=== PATIENT | female | born 1985 | race African-American/Black ===

== ENCOUNTER 2016-10-26 15:17 | Emergency (ER) | payer OTHER ==
[~2016-10-26] VITALS: Ht 160 cm; Wt 61.2 kg
[~2016-10-26 15:17] MED LIST: AMOXICILLIN 50500 M1 PO; AZITHROMYCIN 2250 MG PO; BACTRIM DS TAB1 EACH PO; CIPROFLOXACIN500 M1 PO; DIFLUCAN; LOPERAMIDE2 MG PO; MICONAZOLE3DAY1 EACH VG; NOHOMEMEDICATIONS; NORCO 5-325 TA1 EACH PO; PHENERGAN 25 MG25 M1 PO; PYRIDIUM200 M1 PO; PYRIDIUM200 MG PO; SUPRAX400 M1 PO; TRAMADOL 50 MG50 MG PO; TYLENOL W/CODEI1 TA2 PO; VICODIN 5-5001 EACH PO
[2016-10-26 15:28] LABS: URINE BILIRUBIN NEGATIVE (Negative); URINE BLOOD 3+ (Negative); URINE COLOR YELLOW; URINE GLUCOSE-RANDOM* NEGATIVE (Negative); URINE KETONES NEGATIVE (Negative); URINE NITRITE NEGATIVE (Negative); URINE PROTEIN (DIPSTICK) TRACE (Negative); URINE SPECIFIC GRAVITY 1.025 (1.003-1.035); URINE UROBILINOGEN 0.2 E.U./dl (0.2-1.0)
[2016-10-26 15:30] VITALS: BP 117/71
[2016-10-26] MEDS ORDERED: HYDROCODON-ACE1 EAC7 PO (15:35)
[2016-10-26 15:50] LABS: BACTERIA 1-9 Few /HPF (None Seen); CASTS None Seen /LPF (None Seen); CRYSTALS None Seen /LPF (None Seen); SQUAMOUS >10 Many /LPF (0-3); URINE RBC 0-2 Rare /HPF (0-2); URINE WBC 0-5 Rare /HPF (0-5)
[2016-10-26] MEDS ORDERED: KEFLEX500 MG PO (15:54)
== END 2016-10-26 16:02 | disposition home or self-care (01) ==
LOC: ER 15:17
PROVIDERS: Nurse Practitioner Family
DX: N39.0 Urinary tract infection, site not specified (principal); R30.0 Dysuria; F17.210 Nicotine dependence, cigarettes, uncomplicated; F10.99 Alcohol use, unspecified with unspecified alcohol-induced disorder; Z98.890 Other specified postprocedural states

== ENCOUNTER 2016-10-30 08:42 | Emergency (ER) | payer OTHER ==
[~2016-10-30] VITALS: Ht 160 cm; Wt 61.2 kg
[~2016-10-30 08:42] MED LIST changes: +HYDROCODON-ACE1 EAC7 PO; +KEFLEX500 MG PO
[2016-10-30 09:13] LABS: URINE BLOOD 3+ (Negative); URINE COLOR YELLOW; URINE GLUCOSE-RANDOM* NEGATIVE (Negative); URINE KETONES 1+ (Negative); URINE NITRITE NEGATIVE (Negative); URINE PROTEIN (DIPSTICK) TRACE (Negative); URINE SPECIFIC GRAVITY >= 1.030 (1.003-1.035); URINE UROBILINOGEN 0.2 E.U./dl (0.2-1.0)
[2016-10-30 09:14] LABS: ABSOLUTE NEUTROPHILS 7.8 thou/uL (1.4-8.2); BASOPHILS 0.3 % (0.0-2.0); EOSINOPHILS 0.5 % (0.0-3.0); HEMATOCRIT 42.2 % (37.0-47.0); HEMOGLOBIN 14.2 gm/dL (12.0-15.0); LYMPHOCYTES 11.6 % (24.0-44.0); MCH 29.4 pg (26.0-34.0); MCHC 33.6 g/dL (28.0-37.0); MCV 87.3 fL (80.0-100.0); MONOCYTES 7.9 % (1.0-8.0); PLATELET COUNT 269 thou/uL (150-400); POLYS 79.7 % (36.0-66.0); RBC 4.84 mil/uL (4.20-5.00); RDW 12.5 % (10.5-14.5); WBC 9.7 thou/uL (4.0-11.0)
[2016-10-30 09:18] LABS: ICTOTEST (BILI CONFIRMATORY) Negative (Negative); URINE BILIRUBIN NEGATIVE (Negative)
[2016-10-30 09:23] LABS: CALCIUM 9.2 mg/dL (8.5-10.1); CREATININE 1.4 mg/dL (0.6-1.0); POTASSIUM 3.6 mmol/L (3.5-5.1)
[2016-10-30 09:24] LABS: CASTS None Seen /LPF (None Seen); CRYSTALS None Seen /LPF (None Seen); SQUAMOUS >10 Many /LPF (0-3)
[2016-10-30 09:27] LABS: ALBUMIN 4.1 g/dL (3.4-5.0); DIRECT BILIRUBIN 0.1 mg/dL (<0.1-0.3); TOTAL BILIRUBIN 0.7 mg/dL (<0.1-1.0); TOTAL PROTEIN 7.5 g/dL (6.4-8.2); URINE RBC 3-10 Few /HPF (0-2); URINE WBC 0-5 Rare /HPF (0-5)
[2016-10-30 09:28] LABS: BACTERIA None Seen /HPF (None Seen); MANUAL DIFF NO
[2016-10-30] MEDS ORDERED: FLOMAX0.4 MG PO (10:05)
[2016-10-30] MEDS ORDERED: NORCO 5-325 TA1 EACH PO (10:05)
[2016-10-30] MEDS ORDERED: IBUPROFEN 600600 M1 PO (10:05)
[2016-10-30] MEDS ORDERED: ONDANSETRON HCL4 M2 PO (10:06)
[2016-10-30 10:07] VITALS: BP 107/62
== END 2016-10-30 10:17 | disposition home or self-care (01) ==
LOC: ER 08:42
PROVIDERS: Nurse Practitioner
DX: N20.0 Calculus of kidney (principal); F17.210 Nicotine dependence, cigarettes, uncomplicated; F10.99 Alcohol use, unspecified with unspecified alcohol-induced disorder; Z98.890 Other specified postprocedural states